=== PATIENT | female | born 1955 | race African-American/Black ===

== ENCOUNTER 2017-06-25 16:27 | Emergency (ER) | payer MEDICARE, MEDICAID ==
[~2017-06-25] VITALS: Ht 162.6 cm; Wt 61.0 kg
[2017-06-25] MEDS ORDERED: KETOROLAC 60MG/2ML VIAL IM ONE (18:15)
[2017-06-25 18:33] VITALS: BP 116/79
== END 2017-06-25 18:46 | disposition home or self-care (01) ==
LOC: ER 16:27
DX: K04.7 Periapical abscess without sinus (principal); I10 Essential (primary) hypertension; Z93.3 Colostomy status
CPT/HCPCS: 96372; 99283; J1885